=== PATIENT | male | born 1980 | race African-American/Black ===

== ENCOUNTER → 2016-09-27 | Outpatient (CLI) | payer BC ==
--- NOTE | 2016-09-27 16:24 | DIAGNOSTIC IMAGING REPORT ---
RENAL ULTRASOUND HISTORY: Hematuria HEMATURIA COMPARISON: None. FINDINGS: Right kidney: Maximum dimension 9.7 cm. No evidence for hydronephrosis. Normal corticomedullary differentiation and cortical thickness. Left kidney: Maximum dimension 12.0 cm. No evidence for hydronephrosis. Normal corticomedullary differentiation and cortical thickness. Bladder: No bladder wall thickening. The bilateral ureteral jets were identified. IMPRESSION: Normal renal ultrasound. Electronically signed by: Kal Mann M.D. 09/27/2016 4:23 PM Dictated Date/Time: 09/27/2016 4:22 PM
== END | disposition home or self-care (01) ==
LOC: C.ULTR 15:46
PROVIDERS: ATTEND Family Medicine
DX: R35.0 Frequency of micturition (principal); R31.9 Hematuria, unspecified